=== PATIENT | female | born 1980 | race Caucasian/White ===

== ENCOUNTER → 2017-10-11 | Outpatient (CLI) | payer BC ==
[~2017-10-11] MED LIST: ALBU2.5V4 IN; BENZ100C8 PO; FLUO20CA25 PO; HYDR1TAB PO; PRD20T PO
--- NOTE | 2017-10-11 16:27 | Diagnostic Imaging Report ---
INDICATION: Routine screening. Comparison is made with prior mammograms from 03/05/2015 and 02/15/2013. 2-D and 3-D bilateral screening mammography was performed with CAD. The current study was also evaluated with a Computer Aided Detection (CAD) system. FINDINGS: Both breasts remain heterogeneously dense, limiting the sensitivity of mammography. A biopsy clip in the upper right breast is again noted. Overall breast parenchymal pattern appears stable. No new mass or malignant-appearing microcalcifications are seen. The axillae are unremarkable. IMPRESSION: Stable bilateral mammograms. No mammographic features suspicious for malignancy are identified. ACR BI-RADS Category 2: Benign findings. Result letter will be mailed to the patient. Note: At least 10% of breast cancer is not imaged by mammography. Dictated by: Dictated on workstation # [id number]
== END ==
LOC: RAD 09:29
PROVIDERS: ATTEND Obstetrics & Gynecology
DX: Z12.31 Encounter for screening mammogram for malignant neoplasm of breast (principal); Z80.3 Family history of malignant neoplasm of breast
CPT/HCPCS: 77067

== ENCOUNTER → 2020-04-17 | Outpatient (CLI) | payer BC ==
--- NOTE | 2020-04-20 11:42 | Diagnostic Imaging Report ---
INDICATION: Routine screening. Comparison is made with prior mammogram 10/11/2017 and 03/05/2015. 2-D and 3-D bilateral screening mammography was performed with CAD. Both breasts are heterogeneously dense, limiting the sensitivity of mammography. A biopsy clip in the upper right breast is again noted. The parenchymal pattern appears stable. No mass or malignant appearing microcalcifications are seen. Axillae are unremarkable. IMPRESSION: BI-RADS Category 2 No mammographic features suspicious for malignancy are identified. ACR BI-RADS Category 2: Benign findings. Result letter will be mailed to the patient. Note: At least 10% of breast cancer is not imaged by mammography. Dictated by: Dictated on workstation # [id number]
== END ==
LOC: RAD 15:43
PROVIDERS: ATTEND Obstetrics & Gynecology
DX: Z12.31 Encounter for screening mammogram for malignant neoplasm of breast (principal)
CPT/HCPCS: 77063; 77067

== ENCOUNTER → 2021-04-19 | Outpatient (CLI) | payer BC ==
--- NOTE | 2021-04-20 09:34 | Diagnostic Imaging Report ---
INDICATION: Routine screening. COMPARISON: 04/17/2020 and 10/11/2017. TECHNIQUE: 2D and 3D bilateral screening mammography was performed with CAD. FINDINGS: Both breasts show marked parenchymal heterogeneity and increased density, limiting the sensitivity of mammography. The parenchymal pattern is stable. No mass or malignant-appearing microcalcifications are seen. The biopsy marker clip in the upper right breast is again noted. The axillae are unremarkable. IMPRESSION: No mammographic features suspicious for malignancy are identified. ACR BI-RADS Category 2: Benign findings. Result letter will be mailed to the patient. Note: At least 10% of breast cancer is not imaged by mammography. Dictated by: Dictated on workstation # [id number]
== END ==
LOC: RAD 14:45
PROVIDERS: ATTEND Obstetrics & Gynecology
DX: Z12.31 Encounter for screening mammogram for malignant neoplasm of breast (principal)
CPT/HCPCS: 77063; 77067

== ENCOUNTER → 2021-12-01 | Outpatient (CLI) | payer BC ==
--- NOTE | 2021-12-01 14:22 | Diagnostic Imaging Report ---
Indication: Palpable lump in lateral right breast. Correlation is made prior mammogram 04/19/2021 and 04/17/2020. Unilateral right 2-D and 3-D diagnostic mammography was performed with CAD. CAD is utilized. The current study was also evaluated with a Computer Aided Detection (CAD) system. Right breast is heterogeneously dense, limiting the sensitivity of mammography. There is a biopsy clip in the upper outer right breast. No mass is identified at the area of the palpable abnormality in the upper outer right breast. No malignant-appearing microcalcifications are seen. Right axilla is unremarkable. IMPRESSION: BI-RADS 0 No mammographic features suspicious for malignancy are identified. Even so, directed sonographic interrogation of the area of palpable abnormality in the upper outer right breast is recommended and will be performed today. ACR BI-RADS Category 0: Incomplete. (Needs additional imaging evaluation). Result letter will be mailed to the patient. Note: At least 10% of breast cancer is not imaged by mammography. Dictated by: Dictated on workstation # [id number]
--- NOTE | 2021-12-01 17:02 | Diagnostic Imaging Report ---
INDICATION: Right breast lump. Correlation is made with diagnostic study earlier same day. Sonographic interrogation of the area of lump in right breast was performed. This corresponds to the 10 o'clock location, 7 to 8 cm from the nipple. There is a an ovoid hypoechoic solid appearing mass at this location measuring 1.3 x 0.6 x 0.7 cm. This is taller than it is wide. This does show posterior acoustic enhancement and may represent a fibroadenoma. There is internal vascularity present. No other masses are identified. IMPRESSION: Solid nodule at the 10 o'clock location right breast, 7 to 8 cm from the nipple, corresponding to the palpable abnormality. This may represent a fibroadenoma. Even so, tissue sampling is recommended. This would be amenable to ultrasound-guided core biopsy. ACR BI-RADS Category 4: Suspicious abnormality. Result letter will be mailed to the patient. Note: At least 10% of breast cancer is not imaged by mammography. BI-RADS Category 4 Dictated by: Dictated on workstation # [id number]
== END ==
LOC: RAD 14:15
PROVIDERS: ATTEND Obstetrics & Gynecology
DX: N63.11 Unspecified lump in the right breast, upper outer quadrant (principal)
CPT/HCPCS: 76642; 77065; G0279

== ENCOUNTER → 2021-12-10 | Outpatient (CLI) | payer BC ==
[~2021-12-10] VITALS: Ht 157.5 cm; Wt 47.7 kg
[~2021-12-10] MED LIST changes: +LIDOCAINE 1% INJ 10 ML VIAL INJ ONE; +diphenhydrAMINE 50 MG/ML INJ (BENADRYL) IVP ONE; +diphenhydrAMINE 50 MG/ML INJ (BENADRYL) ONE
[2021-12-10 13:06] VITALS: BP 139/92
[2021-12-10 13:15] VITALS: BP 116/51
[2021-12-10 13:20] VITALS: BP 123/83
[2021-12-10 13:25] VITALS: BP 125/80
[2021-12-10 13:30] VITALS: BP 119/76
[2021-12-10 14:00] VITALS: BP 121/75
--- NOTE | 2021-12-10 14:56 | Diagnostic Imaging Report ---
INDICATION: Right breast nodule. PROCEDURE: The patient presents for ultrasound-guided biopsy. The patient was brought to the sonographic suite and placed on the table in the supine position. Ultrasound imaging of the right breast was performed to evaluate appropriate entry site. A total of 3 passes were made into the hypoechoic solid nodule at the 10:00 location of the right breast utilizing the 14-gauge Achieve needle. Core biopsies were obtained. Marker clip was then deployed. Hemostasis was obtained using manual compression. The patient tolerated the procedure well and was sent for post procedure mammogram in satisfactory condition. Following the completion of the mammogram, the patient did report some nasal congestion and stuffiness. The patient also reported some slight throat tightness although denied any difficulty breathing. Vitals were checked and blood pressure and heart rate were normal. Oxygen saturation was normal at 99%. The patient did continue to have stuffiness and throat tightness. There was a small hive that developed on the right forearm as well as some slight redness in the face and upper chest. Since it appeared the patient was having an allergic reaction, an IV was started in the right antecubital location. 50 mg of Benadryl was administered intravenously. The patient was monitored for approximately 1 hour. The patient did have significant improvement in symptoms. The patient was discharged to her , her dedicated regional driver, in satisfactory condition. It is uncertain what caused the allergic reaction but possibilities would include the lidocaine or perhaps latex from the procedural gloves. IMPRESSION: 1. Ultrasound-guided right breast core biopsy, as described. Pathology results are currently pending. 2. Apparent allergic reaction, as described above. Dictated by: Dictated on workstation # [id number]
--- NOTE | 2021-12-10 16:42 | Diagnostic Imaging Report ---
INDICATION: Status post right breast ultrasound-guided biopsy. EXAMINATION: Unilateral right 2D, CC and ML mammography was performed. FINDINGS: There is a marker clip in the far posterior upper right breast from recent ultrasound-guided biopsy. Right breast is heterogeneously dense. IMPRESSION: Marker clip placement, as described. Dictated on workstation # [id number]
== END ==
LOC: RAD 12:06
PROVIDERS: ATTEND Obstetrics & Gynecology
DX: N63.10 Unspecified lump in the right breast, unspecified quadrant (principal); R92.8 Other abnormal and inconclusive findings on diagnostic imaging of breast
CPT/HCPCS: 19083; 77065; G0279

== ENCOUNTER → 2022-02-24 | Outpatient (CLI) | payer BC ==
[~2022-02-24] VITALS: Ht 159 cm; Wt 47.7 kg
[~2022-02-24] MED LIST changes: +BIRTH CONTROL; -LIDOCAINE 1% INJ 10 ML VIAL INJ ONE; -diphenhydrAMINE 50 MG/ML INJ (BENADRYL) IVP ONE; -diphenhydrAMINE 50 MG/ML INJ (BENADRYL) ONE
== END | disposition home or self-care (01) ==
LOC: PREOP 05:31
PROVIDERS: ATTEND Surgery
DX: Z01.818 Encounter for other preprocedural examination (principal)

== ENCOUNTER 2022-03-03 10:03 | Day surgery (SDC) | payer BC ==
--- NOTE | 2022-02-24 07:46 | HISTORY AND PHYSICAL ---
DATE OF ADMISSION: 03/03/2022. ATTENDING PRIMARY CARE PHYSICIAN: Dr. Todd Camarillo. HISTORY OF PRESENT ILLNESS: The patient is a 41-year-old female with a longstanding history of fibrocystic breast. She has been getting bilateral mammographies as well as ultrasound for years now. She reports that she has had cystic lesions identified of bilateral breasts with approximately four excised from the left breast and three excised from the right breast. She on her recent mammogram as well as ultrasound, another lesion was identified of the right breast at approximately the 10 o'clock position, 6 cm from the nipple areolar complex. The lesion is approximately 1.3 x 0.7 cm in size, palpable and slightly tender to palpation. The patient again has had 4 previous left biopsies, 3 on the right. She began menses at around age 11 and continues to have menstrual cycles. She has had 3 pregnancies and 2 live births with one miscarriage. She did breast feed both children. She did take oral contraceptive pills for approximately 15 years. She does not report any breast asymmetries or any skin dimpling as well as no abnormal nipple discharge. She does have a family history of breast cancer with her mother and maternal grandmother and maternal aunt having the disease. She also reports a brother with a history of possible colon cancer. PAST MEDICAL HISTORY: Bilateral fibrocystic breast. PAST SURGERIES: Left breast biopsy x4, right breast biopsy x3. ALLERGIES: POSSIBLE LATEX. MEDICATIONS: Monistat oral contraceptive pills. SOCIAL HISTORY: Positive vaping 10 years. Negative alcohol. FAMILY HISTORY: Mother, maternal grandmother and maternal aunt, breast cancer. Brother, possible colon cancer. VITAL SIGNS: Blood pressure 120/65, currently 105 pounds at 5 feet 2 inches. REVIEW OF SYSTEMS: CONSTITUTIONAL: A well-nourished female, currently in no acute distress. She is not experiencing shortness of breath or difficulty breathing. No chest pain, palpitations, diaphoresis. No cough or sputum production. No abnormal nipple discharge, skin dimpling or any breast asymmetries. No nausea, vomiting, no diarrhea or constipation. No fever, chills. No recent inadvertent weight loss. PHYSICAL EXAMINATION: CHEST: Clear. Good breath sounds bilaterally HEART: Regular, no murmurs. EXTREMITIES: No lower extremity edema. Negative Homans sign. HEENT: No scleral icterus. No cervical lymphadenopathy. ABDOMEN: Soft, nontender, nondistended. SKIN: Warm, dry. BREASTS: There is bilateral fibrocystic breasts with a cystic type of lesion identified on the right breast along the 10 o'clock position approximately 6 cm from the nipple areolar complex, which is slightly larger and painful to palpation. ASSESSMENT AND PLAN: A 41-year-old female with a history of fibrocystic breast, status post multiple bilateral breast biopsies and a strong family history of breast cancer. Due to the size and nature of this lesion, we will recommend an excisional biopsy of this breast lesion, which we will schedule. Job ID: [id number] DocumentID: [id number] Dictated Date: 02/22/2022 17:04:10 Recruitment Assistant Date: 02/22/2022 20:52:00 Dictated By: BLAYNE WONG MD
[~2022-03-03] VITALS: Ht 159 cm; Wt 47.7 kg
[2022-03-03] VITALS (8 sets, daily range): BP systolic 87–110; BP diastolic 41–70
[2022-03-03] MEDS ORDERED: LACTATED RINGERS 1,000 ML IV PRN (10:15)
[2022-03-03] MEDS ORDERED: ceFAZolin INJECTION 1,000 MG in NS (IVPB) 50 ML IV ONE (10:15)
[2022-03-03] MEDS ORDERED: BUP/EPI 0.5% 1:200,000 (SENSORCAINE) 30 ML VIAL ONE (10:18)
--- NOTE | 2022-03-03 10:18 | Progress Note-Pre Operative ---
Pre-Operative Progress Note Date H&P Reviewed: Mar 03, 2022 Time H&P Reviewed: 10:15 History & Physical: H&P Reviewed, Patient Examed, No changes noted Pre-Operative Diagnosis: Right breast mass BRITTANIE SCANLON APRN Mar 03, 2022 10:18
[2022-03-03] MEDS ORDERED: HYDR-3817 PO (10:19)
--- NOTE | 2022-03-03 10:19 | Discharge Inst-Surgical ---
D/C Lap Instructions-KIDO Reconcile Patient Problems Problems Reviewed?: Yes New, Converted, or Re-Newed RX: RX on Chart Follow Up Appt in 2 weeks Activity as tolerated No driving for 24 hours No driving while on pain medications Incentive Spirometry use every 2 hours while awake Regular Diet Symptoms to Report: Fever over 101 degree F, Nausea/Vomiting Infection Signs and Symptoms to report: Increased redness, Foul odor of wound, Increased drainage Bathing instructions: May shower Operative Area Clean/Dry; Keep incision clean/dry If any problems/questions: Contact your physician or go to Emergency Room BRITTANIE SCANLON APRN Mar 03, 2022 10:19
[2022-03-03] MEDS ORDERED: HYDROcodone/APAP 5 MG/325 MG (LORTAB) TAB PO ONE (10:30)
[2022-03-03] MEDS ORDERED: ACETAMINOPHEN 325 MG TABLET PO PRN (10:30)
[2022-03-03] MEDS ORDERED: morphine INJ 10 MG/ML 1ML (SYR OR VIAL) IVP PRN (10:30)
[2022-03-03] MEDS ORDERED: ONDANSETRON 4 MG/2 ML (SDV) Z0FRAN IVP PRN (10:30)
[2022-03-03] MEDS ORDERED: MIDAZOLAM 2 MG/2 ML (VERSED) VIAL ONE (10:37)
[2022-03-03] MEDS ORDERED: PROPOFOL INJECTION 50 ML IV ONE ×2 (10:37→11:22)
[2022-03-03] MEDS ORDERED: BUP/EPI 0.5% 1:200,000 (SENSORCAINE) 30 ML VIAL INJ ONE (10:45)
--- NOTE | 2022-03-03 11:43 | Progress Note-Post Operative ---
Post-Operative Progess Note Surgeon (s)/Com[employer] Information [employer] Officer (s) Surgeon BLAYNE WONG MD [employer] Officer: [facility] [place] [facility] Pre-Operative Diagnosis Right breast mass Post-Operative Diagnosis same Procedure & Operative Findings Date of Procedure 03/03/22 Procedure Performed/Findings right breast lumpectomy Anesthesia Type mac with local Estimated Blood Loss Estimated blood loss (mL): minimal Specimens/Packing Specimens Removed right breast mass BLAYNE WONG MD Mar 03, 2022 11:43
--- NOTE | 2022-03-03 18:47 | OPERATIVE REPORT ---
DATE OF SERVICE: 03/03/2022 ATTENDING PRIMARY CARE PHYSICIAN: Dr. Todd Camarillo. PREOPERATIVE DIAGNOSIS: Symptomatic fibrocystic breast mass, right breast, 1.3 x 0.7 cm in size. POSTOPERATIVE DIAGNOSIS: Symptomatic fibrocystic breast mass, right breast, 1.3 x 0.7 cm in size. PROCEDURE: Right breast lumpectomy. SURGEON:Fernando Wong MD PLANT QUALITY MANAGER: Kun Elizabeth APRN ANESTHESIA: Monitored anesthesia care with local. ESTIMATED BLOOD LOSS: Minimal. FINDINGS: Fibrocystic breasts. DISPOSITION: The patient tolerated the procedure well. INDICATIONS: The patient is a 41-year-old female with longstanding history of fibrocystic breast. She has been getting bilateral mammograms as well as ultrasound for years now. She has had a cystic lesion identified of bilateral breasts in the past and has had 4 excised from the left breast and 3 from the right. She had a recent mammogram as well as an ultrasound of the right breast, which did show a lesion of the right breast, approximately at the 10 o'clock position, 6 cm from the nipple areolar complex with a lesion approximately 1.3 x 0.7 cm in size, which was palpable and tender to palpation. She has had 3 pregnancies and 2 live births with one miscarriage. She did breast feed both children. She did take oral contraceptive pills for approximately 15 years. She does not report any breast asymmetries or skin dimpling as well as no abnormal nipple discharge. She does have a family history of breast cancer with her mother and maternal grandmother as well as maternal aunt having been disease. She also reports a brother with a history of possible colon cancer. DESCRIPTION OF PROCEDURE: The patient was brought to the operating room and laid supine on the table. After adequate IV pain, sedative medications and monitored anesthesia care, the chest was prepped and draped in standard surgical fashion. A 0.5% Marcaine with epinephrine was then used to anesthetize the overlying skin along the previous biopsy scar site in the upper and outer quadrant of the right breast. Using the same scar, a crescent-shaped skin incision along the glabellar lines was made using a #15 blade. The subcutaneous tissue as well as a normal appearing breast tissue was then dissected down using electrocautery. Once the fibrocystic tissue was identified and the mass identified, this was clamped with Tere clamps and we then proceeded with meticulous dissection around the entire lesion using blunt dissection as well as electrocautery with visualization with good hemostasis. The lesion was then sent to pathology. Good hemostasis was observed and the breast tissue was loosely approximated using 3-0 Vicryl interrupted sutures. The subcutaneous tissue was then reapproximated using 3-0 Vicryl interrupted sutures and the skin was closed using 4-0 Monocryl running subcuticular suture. Wound was then cleaned and covered with Dermabond, followed by pressure dressing. The patient tolerated the procedure well. We will start IV and oral pain medications as well as a clear liquid diet. Once she was tolerating clears with good pain control with oral pain medications, ambulating well, we will discharge her home where she will be instructed no heavy lifting or exertion for the next 2 weeks. Job ID: [id number] DocumentID: [id number] Dictated Date: 03/03/2022 11:51:37 Supervisor [employer] Date: 03/03/2022 18:45:00 Dictated By: BLAYNE WONG MD
--- NOTE | 2022-03-10 11:01 | Anesthesia-General Post-Op ---
MAC Patient Condition Mental Status/LOC: Same as Preop Cardiovascular: Satisfactory Nausea/Vomiting: Absent Respiratory: Satisfactory Pain: Controlled Complications: Absent Post Op Complications Complications None Follow Up Care/Instructions Patient Instructions None needed. Anesthesiology Discharge Order Discharge Order Patient is doing well, no complaints, stable vital signs, no apparent adverse anesthesia problems. No complications reported per nursing. VANDANA ATKINS CRNA Mar 10, 2022 11:01
== END 2022-03-03 12:56 | disposition home or self-care (01) ==
LOC: SDC 10:03
PROVIDERS: ATTEND Surgery
DX: D24.1 Benign neoplasm of right breast (principal); N60.11 Diffuse cystic mastopathy of right breast; F17.290 Nicotine dependence, other tobacco product, uncomplicated
CPT/HCPCS: 84703; 87081; 88307